=== PATIENT | male | born 1970 | race Caucasian/White ===

== ENCOUNTER 2016-05-05 19:47 | Emergency (ER) | payer SELFPAY | END 2016-05-05 19:57 | disposition left against medical advice (07) | LOC: ER1 19:47 | DX: Z53.21 Procedure and treatment not carried out due to patient leaving prior to being seen by health care provider (principal) ==

== ENCOUNTER 2016-05-30 09:53 | Emergency (ER) | payer SELFPAY ==
[2016-05-30 11:44] LABS: HEMOGLOBIN 16.5 gm/dl (14.0-17.5); RED BLOOD COUNT 5.26 M/UL (4.20-5.50); WHITE BLOOD COUNT 9.3 K/UL (4.5-11.0)
[2016-05-30 12:02] LABS: BUN/CREATININE RATIO 14 (0-10)
== END 2016-05-30 15:55 | disposition home or self-care (01) ==
LOC: ER1 09:53
PROVIDERS: Student in an Organized Health Care Education/Training Program
DX: K11.21 Acute sialoadenitis (principal); J30.2 Other seasonal allergic rhinitis; Z76.0 Encounter for issue of repeat prescription
CPT/HCPCS: 36415; 70491; 80053; 85025; 87081; 87880; 96361; 96374; 99284; J1100; J7040; J7050; Q9962

== ENCOUNTER 2020-09-09 07:19 | Emergency (ER) | payer OTHER ==
[~2020-09-09 07:19] MED LIST: BENTYL 10MG CAP10 MG PO; CYCLOBENZAPRINE10 MG PO; DOXYCYCLINE HY100 M2 PO; IBUPROFEN600 MG PO; LOPRESSOR 25 MG25 MG PO; MOBIC7.5 MG PO; PRINIVIL20 MG PO; PROTONIX40 MG PO; ZOFRAN4 MG PO
[2020-09-09 07:57] LABS: HEMOGLOBIN 16.7 gm/dl (14.0-17.5); RED BLOOD COUNT 5.07 M/UL (4.20-5.50); WHITE BLOOD COUNT 10.1 K/UL (4.5-11.0)
[2020-09-09 08:15] LABS: BUN/CREATININE RATIO 8 (0-10)
[2020-09-09] MEDS ORDERED: PANTOPRAZOLE SO20 MG PO (09:27)
[2020-09-09] MEDS ORDERED: ZOFRAN ODT 4 MG4 MG PO (09:27)
== END 2020-09-09 10:28 | disposition home or self-care (01) ==
LOC: ER1 07:19
PROVIDERS: Family Medicine
DX: R10.84 Generalized abdominal pain (principal); R11.2 Nausea with vomiting, unspecified; R03.0 Elevated blood-pressure reading, without diagnosis of hypertension
CPT/HCPCS: 74019; 80053; 81001; 83605; 83690; 85025; 96374; 96375; 99284; C9113; J2270; J2405

== ENCOUNTER → 2021-02-22 | Outpatient (CLI) | payer OTHER ==
[~2021-02-22] MED LIST changes: +PANTOPRAZOLE SO20 MG PO; +ZOFRAN ODT 4 MG4 MG PO
== END ==
LOC: LAB 23:07
DX: Z02.83 Encounter for blood-alcohol and blood-drug test (principal)
CPT/HCPCS: 36415